=== PATIENT | female | born 1995 | race Caucasian/White ===

== ENCOUNTER 2017-05-01 16:51 | Emergency (ER) | payer MEDICAID ==
[~2017-05-01] VITALS: Ht 167.6 cm; Wt 63.0 kg
[~2017-05-01 16:51] MED LIST: DOCU-131 PO; FERR325T17 PO; IBUP-1223 PO
[2017-05-01 17:36] LABS: BASOPHILS # (AUTO) 0.02 x10^3/uL (0-0.3); BASOPHILS % (AUTO) 0 % (0-1); EOSINOPHILS # (AUTO) 0.05 x10^3/uL (0-0.8); EOSINOPHILS % (AUTO) 1 % (1-7); LYMPHOCYTES # (AUTO) 1.55 x10^3/uL (1-6.1); LYMPHOCYTES % (AUTO) 22 % (22-44); MD NO; MEAN CORPUSCULAR HEMOGLOBIN 29.2 pg (27.0-34.8); MEAN CORPUSCULAR HGB CONC 33.6 g/dL (32.4-35.8); MEAN CORPUSCULAR VOLUME 86.9 fL (80-100); MONOCYTES # (AUTO) 0.64 x10^3/uL (0-1.4); MONOCYTES % (AUTO) 9 % (2-9); NEUTROPHILS % (AUTO) 68 % (42-75); PLATELET COUNT 344 x10^3/uL (130-400); RED BLOOD COUNT 4.57 x10^6/uL (3.82-5.3); RED CELL DISTRIBUTION WIDTH 13.4 % (9.6-15.2)
[2017-05-01 17:46] LABS: MICROSCOPIC INDICATED
[2017-05-01 17:47] LABS: ALBUMIN 3.4 g/dL (3.4-5.0); ANION GAP 10 mmol/L (5-15); CALCIUM 8.6 mg/dL (8.5-10.1); CHLORIDE 107 mmol/L (98-107)
[2017-05-01 17:53] LABS: ALANINE AMINOTRANSFERASE 16 U/L (12-78); ALKALINE PHOSPHATASE 74 U/L (45-117); CREATININE 0.58 mg/dL (0.55-1.02); TOTAL PROTEIN 7.4 g/dL (6.4-8.2)
[2017-05-01] MEDS ORDERED: SODIUM CHLORIDE 0.9% 1,000ML IVBOLUS ONE (18:00)
[2017-05-01] MEDS ORDERED: KETOROLAC 30 MG/1 ML IVPush ONE (18:00)
[2017-05-01] MEDS ORDERED: MECLIZINE CHEWABLE 25 MG TAB PO ONE (18:00)
[2017-05-01 18:05] LABS: CULTURE INDICATED? YES
[2017-05-01] MEDS ORDERED: KETOROLAC 30 MG/1 ML ONE (18:18)
[2017-05-01] MEDS ORDERED: MECLIZINE CHEWABLE 25 MG TAB ONE (18:18)
[2017-05-01] MEDS ORDERED: AZITHROMYCIN 250 MG TABLET ONE (18:27)
[2017-05-01] MEDS ORDERED: CEFTRIAXONE 250 MG ONE (18:27)
[2017-05-01] MEDS ORDERED: CEFTRIAXONE 1,000 MG IM ONE (18:30)
[2017-05-01] MEDS ORDERED: AZITHROMYCIN 500 MG TABLET PO ONE (18:30)
[2017-05-01 18:39] LABS: CLUE CELLS NONE SEEN (NONE SEEN); WET PREP WBCS FEW (FEW)
[2017-05-01] MEDS ORDERED: PROCHLORPERAZINE 5 MG/ML, 2ML ONE (18:56)
[2017-05-01] MEDS ORDERED: PROCHLORPERAZINE 5 MG/ML, 2ML IVPush ONE (19:00)
[2017-05-01 19:04] VITALS: BP 108/69
== END 2017-05-01 19:23 | disposition home or self-care (01) ==
LOC: ED 19:17
DX: R10.2 Pelvic and perineal pain (principal); H81.399 Other peripheral vertigo, unspecified ear; R51 Headache; Z97.5 Presence of (intrauterine) contraceptive device
CPT/HCPCS: 36415; 76830; 80053; 81001; 84703; 85025; 87086; 87210; 87491; 87591; 87808; 93005; 96361; 96372; 96374; 96375; 99285; J0696; J0780; J1885; J7030

== ENCOUNTER 2018-01-21 01:06 | Emergency (ER) | payer MEDICAID ==
[~2018-01-21] VITALS: Ht 167.6 cm; Wt 65.0 kg
[2018-01-21] MEDS ORDERED: ONDANSETRON 2MG/ML, 2ML ONE (01:19)
[2018-01-21] MEDS ORDERED: ONDANSETRON 2MG/ML, 2ML IVPush ONE (01:30)
[2018-01-21] MEDS ORDERED: SODIUM CHLORIDE 0.9% 1,000ML IVBOLUS ONE (01:30)
[2018-01-21 02:45] VITALS: BP 105/56
== END 2018-01-21 02:49 | disposition home or self-care (01) ==
LOC: ED 01:30
DX: F10.120 Alcohol abuse with intoxication, uncomplicated (principal); R11.2 Nausea with vomiting, unspecified
CPT/HCPCS: 96361; 96374; 99284; J2405; J7030

== ENCOUNTER 2020-01-10 18:47 | Emergency (ER) | payer BC, MEDICAID ==
[~2020-01-10] VITALS: Ht 167.6 cm; Wt 75.0 kg
[2020-01-10 19:17] LABS: BASOPHILS % (AUTO) 1 % (0-1); EOSINOPHILS % (AUTO) 2 % (1-7); LYMPHOCYTES % (AUTO) 25 % (22-44); MEAN CORPUSCULAR HGB CONC 33.4 g/dL (32.4-35.8); MONOCYTES % (AUTO) 8 % (2-9); NEUTROPHILS % (AUTO) 65 % (42-75); PLATELET COUNT 317 x10^3/uL (130-400); RED BLOOD COUNT 4.95 x10^6/uL (3.82-5.3); RED CELL DISTRIBUTION WIDTH 12.6 % (9.6-15.2)
[2020-01-10 19:25] LABS: ALBUMIN 3.5 g/dL (3.4-5.0); ANION GAP 6 mmol/L (5-15); CALCIUM 8.8 mg/dL (8.5-10.1); CHLORIDE 111 mmol/L (98-107); CREATININE 0.58 mg/dL (0.55-1.02)
[2020-01-10 19:31] LABS: MD NO
--- NOTE | 2020-01-10 20:05 | NUR ---
PT TO AND CARE ASSUMED. PT STATES SHE IS 12 WEEKS . HAD US AT [facility] TODAY AND WAS TOLD NO HEART BEAT WAS HEARD. 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 PT DENIES CRAMPING OR BLEEDING. STATES NO COMPLAINTS AT THIS TIME. VSS. CALL LIGHT IN REACH.
--- NOTE | 2020-01-10 20:24 | NUR ---
PT TO US VIA [facility].
[2020-01-10 21:05] VITALS: BP 108/70
--- NOTE | 2020-01-10 21:05 | NUR ---
PT BACK FROM [place]. DENIES NEEDS AT THIS TIME. PT REQUESTING HER OB IS CALLED WITH UPDATE. PHONE NUMBER GIVEN TO ERP. CHART UP FOR RECHECK.
== END 2020-01-10 21:41 | disposition home or self-care (01) ==
LOC: ED 19:17
DX: O36.4XX0 Maternal care for intrauterine death, not applicable or unspecified (principal); R10.2 Pelvic and perineal pain; Z3A.10 10 weeks gestation of pregnancy
CPT/HCPCS: 36415; 76801; 80048; 82040; 84702; 85025; 99284